=== PATIENT | female | born 1975 | race Two or more races ===

== ENCOUNTER 2025-07-15 13:00 | Outpatient (REF) | payer OTHER, SELFPAY ==
--- OUTSIDE RECORDS SUMMARY | 2025-07-15 15:00 | XMS_ITS | Encounter Summary ---
Author Organization [facility] Address [address] [place] [address] [address] [place] [address] Care Team Providers Care Client Support Coordinator Name Role Phone Alyssa Ellsworth MD Primary Care Provider Cierra Casey NP Primary Care Provider [phone] Reason for Visit * Reason Comments Med Change Request Encounter Details Date Type Department Care Team (Late st Contact Info) Description 04/08/2024 Refill [facility] [address] [place] [address] Lucien Cardenas MD [address] [place] [address] Type 2 diabetes mellitus without complication, without long-term current use of insulin ([facility]) Social History Tobacco Use Types Packs/Day Years Used Date Smoking Tobacco: Never Smokeless Tobacco: Never Alcohol Use Standard Drinks/Week Comments Not Currently 0 (1 standard drink = 0.6 oz pur e alcohol) Housing Stability Answer Date Recorded What is your housing situation today? I have charlotte madrigal 08/10/[address] you li ve. Do you have problems with any of the following? None of the above 08/10/2023 Food Insecurity Answer Date Recorded Within the past 12 months, y ou worried that your food would run out before you got money to buy more: Never True 08/10/2023 Within the past 12 months,th e food you bought just didn't last and you didn't have enough money to get more: Never True Transportation Answer Date Recorded In the past 12 months, has l ack of transportation kept you from medical appts, meetings, work or from getting things needed for daily living? No 08/10/2023 Utilities Answer Date Recorded In the past 12 months, has t he electric, gas, oil or water company threatened to shut off services in your home? No 08/10/2023 Comments Unknown Sex and Gender Information Value Date Recorded Sex Assigned at Female 08/09/2022 3:27 PM EDT Legal Sex Female 3:27 PM EDT Gender Identity Female 08/09/2022 3:27 PM EDT Sexual Orientation Straight 08/09/2022 3: 27 PM EDT documented as of this encounter Miscellaneous Notes * Telephone Encounter - Alyssa Ellsworth MD - 04/09/2024 12:18 PM EDT Approving, but needs appt for additional refills. * Telephone Encounter - RAYNA Small - 04/09/2024 11:12 AM EDT RX Change Request from: Dear provider pharmacy/Patient is requesting a change on RX: metFORMIN (Glucophage) 500 MG tablet 1.Rx sig: No 2.Rx quantity: Yes 3.Rx day supply: Yes 4. PA/Alternative No Pharmacy comment: REQUEST FOR 90 DAYS PRESCRIPTION. DX Code Needed. RAYNA Small 04/09/2024 documented in this encounter Plan of Treatment Not on file documented as of this encounter Visit Diagnoses Diagnosis Type 2 diabetes mellitus without complication, without long-term current use of insulin (HCC) documented in this encounter Care Teams Client Support Coordinator Relationship Specialty Start Date End Date Alyssa Ellsworth MD PCP - General Family Medicine 08/19/23 12/21/24 Cierra Lindsey NP [address] [place] [address] PCP - General Family Medicine 12/22/24 documented as of this encounter
--- OUTSIDE RECORDS SUMMARY | 2025-07-15 15:00 | XMS_ITS | Encounter Summary ---
Author Organization [facility] Address [address] [facility] [address] [place] [address] Care Team Providers Care Loin Trimmer Name Role Phone Alyssa Ellsworth MD Primary Care Provider Cierra Casey NP Primary Care Provider [phone] Reason for Visit * Reason Onset Date Comments Med Refill 03/11/2024 Encounter Details Date Type Department Care Team (Late st Contact Info) Description 03/11/2024 Refill [facility] [address] [place] [address] Jaspal Root MD [address] [place] [address] Type 2 diabetes mellitus without complication, without long-term current use of insulin ([facility]) Social History Tobacco Use Types Packs/Day Years [...] encounter Miscellaneous Notes * Telephone Encounter - Lucien Cardenas MD - 03/14/2024 9:43 PM EDT Approving, but needs appt for additional refills. * Telephone Encounter - Lola Logan - 03/12/2024 8:27 AM EDT PATIENT REQUEST RX Previous Appt: 06/13/23 Office Visit on 06/13/2023 Component Date Value Ref Range Status Hemoglobin A1c 06/13/2023 6.0 (H) <5.7 % of total Hgb Final Comment: For someone without known diabetes, a hemoglobin A1c value between 5.7% and 6.4% is consistent with prediabetes and should be confirmed with a follow-up test. For someone with known diabetes, a value <7% indicates that their diabetes is well controlled. A1c targets should be individualized based on duration of diabetes, age, comorbid conditions, and other considerations. This assay result is consistent with an increased risk of diabetes. Currently, no consensus exists regarding use of hemoglobin A1c for diagnosis of diabetes for children. Mean Plasma Glucose 06/13/2023 136 mg/dL (calc) Final Glucose 06/13/2023 93 65 - 99 mg/dL Final Comment: Fasting reference interval Urea Nitrogen (BUN) 06/13/2023 11 7 - 25 mg/dL Final Creatinine 06/13/2023 0.79 0.50 - 0.99 mg/dL Final eGFR 06/13/2023 92 > OR = 60 mL/min/1.73m2 Final BUN/Creatinine Ratio 06/13/2023 SEE NOTE: (calc) Final Comment: Not Reported: BUN and Creatinine are within reference range. Sodium 06/13/2023 138 135 - 146 mmol/L Final Potassium 06/13/2023 4.7 3.5 - 5.3 mmol/L Final Chloride 06/13/2023 104 98 - 110 mmol/L Final Carbon Dioxide 06/13/2023 26 20 - 32 mmol/L Final Calcium 06/13/2023 10.0 8.6 - 10.2 mg/dL Final Past Appointments Date Time Status Provider Department Type Appt Notes 09/12/2023 2:00 PM Can Alyssa Ellsworth MD [facility] Office Visit DM II 09/12/2023 1:50 PM Can Cory Angeles MD [facility] Office Visit DM II 06/17/2023 1:00 PM Comp MAMMOGRAPHY AN RAD MAMMO 06/13/2023 3:50 PM Comp Cory Angeles MD [facility] Physical CPE + f/u HTN 05/28/2023 11:00 AM Tod Diaz DPM [facility] POD Consult pod. reff No future appointments. documented in this encounter Plan of Treatment Not on file documented as of this encounter Visit Diagnoses Diagnosis Type 2 diabetes mellitus without complication, without long-term current use of insulin (HCC) documented in this encounter Care Teams Loin Trimmer Relationship Specialty Start Date End Date Alyssa Ellsworth MD PCP - General Family Medicine 08/19/23 12/21/24 Ceirra Lindsey NP [facility] [place] [address] PCP - General Family Medicine 12/22/24 documented as of this encounter
--- OUTSIDE RECORDS SUMMARY | 2025-07-15 15:00 | XMS_ITS | Clinical Summary ---
Author Organization [employer] Address [address] [facility] [address] [place] [address] Care Team Providers Care Payroll Auditor Name Role Phone Cierra Lindsey NP Primary Care Provider [phone] Allergies No known active allergies Medications lisinopril 10 MG tabletIndication s:Well-controlle d hypertension Take 1 tablet (10 mg) by mouth Once per day. 30 tablet 11 4 Active Drospirenone (Slynd) 4 MG tabletIndication s:Contraceptive Therapy,Norenthi ndrone intolerance Take 1 tablet by mouth Once per day. 84 tablet 4 4 025 Active rosuvastatin (Crestor) 40 MG tablet Take 1 tablet (40 mg) by mouth Once per day. 30 tablet 11 4 Active senna-docusate sodium (Senokot-S) 8.6-50 MG tabletIndication s:Constipation, unspecified constipation type Take 1 tablet by mouth Once per day. 30 tablet 4 025 Active ferrous sulfate (Fe Tabs) 325 (65 Fe) MG EC tablet Take 1 tablet (325 mg) by mouth every other day. Do not crush, chew, or split. 45 tablet 3 5 026 Active metFORMIN (Glucophage) 500 MG tabletIndication s:Type 2 diabetes mellitus without complication, without long-term current use of insulin (HCC) Take 1 tablet (500 mg) by mouth with breakfast AND 2 tablets (1,000 mg) at bedtime. 270 tablet 1 5 Active LORazepam (Ativan) 1 MG tabletIndication s:Counseling for control, intrauterine device Take 1 tablet (1 mg) by mouth 1 (one) time for 1 dose. 30 minutes before appointment 1 tablet 5 Active sulfamethoxazole -trimethoprim (Bactrim DS) 800-160 MG tabletIndication s:Urinary tract infection without hematuria, site unspecified Take 1 tablet by mouth 2 times daily for 5 days. 10 tablet 5 025 Active Problems Problem Noted Date Diagnosed Date Right lateral abdominal pain 2024 Assessment & Plan (2024 4:24 PM EDT): Advised Charlotte that this is very difficult to work up over the phone, as I cannot examine her belly or see where her pain is located. Advised in-office visit. Her liver US showed echogenicity and LFTs slightly elevated. This is not likely the cause of pain. She has no gallbladder disease on most recent imaging. Recommended trial of pepcid. Consider H pylori, PUD, inflammatory bowel, gas, constipation Vasovagal syncope 2024 Overview (2024): S/p vasovagal syncope with head strike. Evaluated in ED. Recommended brain rest, hydration. RTC if worsening sx. Hair loss 10/07/2024 Overview (10/07/2024): Noting 8 months of hair thinning Visit audio- unable to see hair/do hair pull test No anemia 09/22 Less likely to be medication side effect-hair loss not listed as major side effect for rosuvastatin, metformin, lisinopril Not currently taking drospirenone Labs ordered Highly echogenic liver on ultrasound 09/06/2024 Overview (10/07/2024): Patient with recent abdominal ultrasound consistent with hepatic steatosis Fib four 0.86- advanced fibrosis unlikely Fibroscan ordered- pt plans to think about whether wants to do it Adenomatous polyp of colon 09/06/2024 Overview (09/06/2024): Patient reports previous colonoscopy 3 years ago-was recommended to repeat in 3 years Colonoscopy ordered-patient to schedule Constipation 09/06/2024 Overview (09/06/2024): Patient endorsing bowel movement approximately every other day with constipation and some bright red blood on toilet paper after difficult bowel movement-no red flag symptoms Discussed increasing hydration and fiber Reasonable to trial stool softener which was sent to pharmacy Colonoscopy ordered as discussed Follow-up in 1 month Cramps of lower extremity 06/16/2023 Assessment & Plan (06/16/2023 10:30 PM EDT): Unclear etiology. Will continue to monitor this. I have asked her to try to exercise more during her weeks - suggested walking regularly Encounter for screening for malignant neoplasm o f breast 06/16/2023 Assessment & Plan (06/16/2023 10:27 PM EDT): Mammogram due - pt to schedule this today. Encounter for annual general medical examination without abnormal findings in adult 05/07/2023 Assessment & Plan (06/16/2023 10:27 PM EDT): Pt seen today for physical exam. Discussed dangers of tobacco, excessive alcohol, drug use, sun exposure and seatbelt use. Immunizations: plan to discuss immunization history during her next follow-up viist Healthy lifestyle recommendations discussed Exercise 30mins at least 3 times per week Increase fresh fruit and veggies in diet, increase fiber and lean protein. Recommend regular Eye and Dental care Labs today as below. Will contact with results. Type 2 diabetes mellitus wit hout complication, without long-term current use of insulin 02/02/2023 Overview (2024): Jun 2024 A1C 6.21 Nov 2024 A1c 7.1% Currently taking metformin 500mg twice daily, rosuvastatin 40mg every day Foot exam due Eye exam due Microalbumin 07/05/24 WNL Recheck A1c in 3 months Assessment & Plan (06/16/2023 10:26 PM EDT): Plan to continue current regimen. Check labs as listed below. Assessment & Plan (02/02/2023 11:03 AM EDT): Stable on current regimen. Plan to continue. A1C has been at goal. Toenail deformity 02/02/2023 Assessment & Plan (02/02/2023 11:03 AM EDT): Referred to podiatry given her toe complaint. Thoracic back pain 11/14/2021 Well-controlled hypertension 02/15/2021 Overview (10/07/2024): Current regimen lisinopril 10mg daily Patient denies elevated blood pressure at home Assessment & Plan (06/16/2023 10:24 PM EDT): BP well-controlled on current regimen. Plan to continue. Assessment & Plan (02/02/2023 11:02 AM EDT): BP is very close to goal today. I am encouraging her to start regularly exercising going forward. I anticipate her BP improving with the addition of regular exercise. Plan to continue lisinopril 30 mg daily. Unspecified ovarian cyst, left side 07/16/2019 Pain in unspecified knee 05/28/2019 Varicose veins 05/28/2019 Anovulation 06/19/2018 Oligomenorrhea 03/23/2018 Delayed menses 02/19/2018 Polycystic ovarian syndrome 02/19/2018 Headache 12/15/2017 Overview (05/15/2024): Patient endorsing headache which sounds consistent with tension type headache-no neurologic deficits on exam Patient also has shoulder and neck soreness- likely muscle spasm as no focal deficits on exam Discussed can trial low-dose muscle relaxant-trial Flexeril 5 mg as needed, also okay to continue Excedrin Migraine medication as needed for headache Patient also to try to do breathing exercises to stay calm as she says when she is calm the headache goes away Discussed appropriate use of medications, potential adverse effects, and expectations regarding treatment. 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 Questions answered. Patient understands and agrees with plan. Obesity 01/20/2017 Dyslipidemia 09/20/2016 Overview (10/07/2024): Moderate control, improving Currently on rosuvastatin 40 mg Assessment & Plan (06/16/2023 10:28 PM EDT): Check labs as listed below. Resolved Problems Problem Noted Date Diagnosed Date Resolved Date Vaginal discharge 12/18/2021 06/16/2023 Uncontrolled type 2 diabetes mellitus 11/15/2021 06/16/2023 Benign essential hypertension 08/26/2019 06/16/2023 Overview (10/31/2022): Stage I hypertension - declined medication - prefers to continue to work on lifestyle modifications Prediabetes 09/20/2016 06/16/2023 Encounters Date Type Department Care Team Description 07/12/2025 Results Follow-Up [address] [address] Anu Ojeda, CELESTE BI Mammogram Screening Bilateral 07/08/2025 Results Follow-Up [address] [address] Anu Ojeda, CELESTE POCT Urinalysis dipstick, Urine culture (clean catch) 07/04/2025 3:00 PM EDT Office Visit [address] [address] Anu Ojeda, CELESTE Pelvic pain (Primary Dx); Menorrhagia with regular cycle; Dysuria 07/03/2025 Travel 06/23/2025 11:30 AM EDT [facility] [address] [place] [address] Anu Ojeda, CELESTE Dysmenorrhea (Primary Dx); Screening mammogram for breast cancer; Counseling for control, intrauterine device 06/20/2025 Travel from Last 3 Months Immunizations Immunization Administration Dates Next Due INFLUENZA VACCINE QUADRIVALE NT RECOMBINANT PRESERVATIVE FREE RIV4 08/26/2019 Moderna Covid-19 Vaccine 12+ 02/27/2021,01/31/20 21 Moderna Covid-19 Vaccine 6+ Bivalent 10/27/2022 Td (adult), unspecified 08/26/2019 Tdap 08/26/2019 Family History Medical History Relation Name Comments Cancer Mother Marissa bolaños Relation Name Status Comments Mother Marissa bolaños Social History Tobacco Use Types Packs/Day Years Used Date Smoking Tobacco: Never Smokeless Tobacco: Never Tobacco Cessation:Counseling Given: Not Answered Alcohol Use Standard Drinks/Week Comments Never 0 (1 standard drink = 0.6 oz pur e alcohol) Alcohol Answer Date Recorded How often do you have a drink containing alcohol ? 0 12/20/2024 How many drinks containing a lcohol do you have on a typical day when you are drinking? 0 12/20/2024 How often do you have six or more drinks on one occasion? 0 12/20/2024 Depression Answer Date Recorded Patient Health Questionnaire-9 Score 0 12/20/2024 Patient Health Questionnaire-9 Score 0 12/20/2024 Last PHQ-9: Questionnaire Data 1 0 12/20/2024 Housing Stability Answer Date Recorded What is your housing situation today? I have charlotte madrigal 12/20/[address] you li ve. Do you have problems with any of the following? None of the above 12/20/2024 Food Insecurity Answer Date Recorded Within the past 12 months, y ou worried that your food would run out before you got money to buy more: Never True 12/20/2024 Within the past 12 months,th e food you bought just didn't last and you didn't have enough money to get more: Never True 07/2025 Transportation Answer Date Recorded In the past 12 months, has l ack of transportation kept you from medical appts, meetings, work or from getting things needed for daily living? No 12/20/2024 Utilities Answer Date Recorded In the past 12 months, has t he electric, gas, oil or water company threatened to shut off services in your home? No 12/20/2024 Depression Answer Date Recorded Patient Health Questionnaire-2 Score 0 12/20/2024 Internet Access Answer Date Recorded Internet Access Q1 Yes 12/20/2024 Internet Access Q2 Not on file 12/20/2024 Comments No Sex and Gender Information Value Date Recorded Sex Assigned at Female 08/09/2022 3:27 PM EDT Legal Sex Female 3:27 PM EDT Gender Identity Female 08/09/2022 3:27 PM EDT Sexual Orientation Straight 08/09/2022 3: 27 PM EDT Last Filed Vital Signs Vital Sign Reading Time Taken Comments Blood Pressure 126/85 07/04/2025 1:59 PM EDT Pulse 66 07/05/2024 11:34 AM EDT Temperature 36.4 C (97.6 F) 07/05/2024 11:34 AM EDT Respiratory Rate - - Oxygen Saturation 100% 07/05/2024 11:34 AM EDT Inhaled Oxygen Concentration - - Weight 85 kg (187 lb 4.8 oz) 07/04/2025 1:59 PM EDT Height 165.1 cm (5' 5 ) 12/20/2024 9:51 AM EDT Body Mass Index 31.17 12/20/2024 9:51 AM EDT Plan of Treatment Health Maintenance Due Date Last Done Comments CT Colonography 1973 FIT DNA/Cologuard 1973 FIT 1973 FOBT 1973 HIV Screening 1973 Sigmoidoscopy 1973 Eye Exam 12/24/1983 Family Planning (PISQ) 1988 Hepatitis C Screening 12/24/1991 Hepatitis B Vaccines (1 of 3 - 19+ 3-dose series) 1992 Pneumococcal Vaccine: 50+ Years (1 of 2 - PCV) 1992 Zoster Vaccines (1 of 2) 12/24/2023 COVID-19 Vaccine (4 - season) 2025 10/27/2022, 02/27/2021, 01/30/2021 Influenza Vaccine (#1) 2025 08/26/2019 Diabetes: Foot Exam 07/05/2025 07/05/2024, 07/05/2024, 07/05/2024, Additional history exists Diabetes: Urine Protein Screening 07/05/2025 07/05/2024, 03/26/2024, 12/06/2022 Lipid Panel 09/22/2025 09/22/2024, 06/14, 03/26/2024, Additional history exists Tobacco Screening 10/07/2025 10/07/2024 Diabetes: Hemoglobin A1C 12/08/2025 025, 03/10/2025, 12/08/2024, Additional history exists Disability Screening 12/13/2025 12/13/2024 Alcohol/Substance Use Screening 12/20/2025 12/20/2024 Depression Screening 12/20/2025 12/20/2024, 12/21/19 25 SDOH Screening 12/20/2025 12/20/2024 Mammogram 07/12/2027 07/12/2025, 06/13, 07/11/2021, Additional history exists Cervical Cancer Screening 07/05/2029 HPV/Cotest 07/05/2029 07/05/2024 Pap Smear 07/05/2029 07/05/2024, 06/14, 09/20/2016 DTaP/Tdap/Td Vaccines (2 - Td or Tdap) 08/26/2029 08/26/2019, 08/26/2019 Colonoscopy 07/18/2031 07/18/2021 Colorectal Cancer Screening 07/18/2031 RSV Patients and Patients Aged 60 years or older (1 - 1-dose 75+ series) 2048 HIB Vaccines Aged Out No longer eligi ble based on patient's age to complete this topic HPV Vaccines Aged Out No longer eligi ble based on patient's age to complete this topic Hepatitis A Vaccines Aged Out No long er eligible based on patient's age to complete this topic IPV Vaccines Aged Out No longer eligi ble based on patient's age to complete this topic Meningococcal B Vaccine Aged Out No l onger eligible based on patient's age to complete this topic Meningococcal Vaccine Aged Out No nahum adia eligible based on patient's age to complete this topic RSV under 20 months Aged Out No longe r eligible based on patient's age to complete this topic Rotavirus Vaccines Aged Out No longer eligible based on patient's age to complete this topic Procedures Procedure Name Priority Date/Time Associated Diagnosis Comments BI MAMMOGRAM SCREENING BILATERAL Routine 07/12/2025 11:19 AM EDT Screening mammogram for breast cancer CULTURE, URINE, ROUTINE Routine 07/05/2025 3:41 PM EDT Pelvic pain POCT URINALYSIS DIPSTICK Routine 07/04/2025 2:46 PM EDT Pelvic pain HEMOGLOBIN A1C WITH MPG Routine 06/07/2025 11:00 AM EDT Type 2 diabetes mellitus without complication, without long-term current use of insulin (CMS/HCC) LIPID PANEL, STANDARD Routine 09/22/2024 11:40 AM EST Highly echogenic liver on ultrasound Dyslipidemia ALBUMIN, RANDOM URINE W/CREATININE Routine 07/05/2024 12:51 PM EDT Type 2 diabetes mellitus without complication, without long-term current use of insulin (CMS/HCC) THINPREP IMAGING PAP AND HPV MRNA E6/E7 WITH REFLEX TO HPV 16,18/45 Routine 07/05/2024 12:00 AM EDT Encounter for annual routine gynecological examination Cervical cancer screening COLONOSCOPY Routine 07/18/2021 9:00 AM EDT from Last 3 Months or Most Recently Relevant to Health Maintenance Results * BI Mammogram Screening Bilateral (07/12/2025 11:19 AM EDT) Anatomical Region Laterality Modality Breast Bilateral Mammography 07/12/2025 11:1 9 AM EDT 07/04/2025 1:09 PM EDT Narrative 07/12/2025 11:24 AM EDT FINAL REPORT FINAL REPORTBILATERAL DIGITAL SCREENING MAMMOGRAM INTERPRETED WITH COMPUTER AIDED DETECTION. INDICATION: Screening. COMPARISON: Available. TECHNIQUE: Routine views were obtained. Computer-aided detection was utilized. FINDINGS: Tissue Density: B. There are scattered areas of fibroglandular density. There are scattered fibroglandular densities. There is no suspicious dominant mass, architectural distortion or suspicious grouped microcalcifications. IMPRESSION: No evidence of malignancy. BI-RADS 1 - NEGATIVE. POI: [place] [address] . Procedure Note Donotuseinterpreter, Image - 07/12/2025 FINAL REPORT FINAL REPORTBILATERAL DIGITAL SCREENING MAMMOGRAM INTERPRETED WITH COMPUTER AIDED DETECTION. INDICATION: Screening. COMPARISON: Available. TECHNIQUE: Routine views were obtained. Computer-aided detection was utilized. FINDINGS: Tissue Density: B. There are scattered areas of fibroglandular density. There are scattered fibroglandular densities. There is no suspicious dominant mass, architectural distortion or suspicious grouped microcalcifications. IMPRESSION: No evidence of malignancy. BI-RADS 1 - NEGATIVE. POI: [place] [address] . Anu Ojeda NP IMG BI PROCEDURES Final Resu lt * (ABNORMAL) Urine culture (clean catch) (07/05/2025 3:41 PM EDT) Culture, Urine, Routine SEE NOTE(A) [employer] Comment: CULTURE, URINE, ROUTINE Micro Number: [id number] Test Status: Final Specimen Source: Urine Specimen Quality: Adequate Result: Greater than 100,000 CFU/mL of Escherichia coli COMMENT: Additional non-predominating organism(s) isolated. These organisms, commonly found on external and internal genitalia, are considered colonizers. No further testing performed. E.coli INT KENTRELL AMOX/CLAVULANATE S 4 AMP/SULBACTAM S 4 CEFAZOLIN NR <=1 2 CEFEPIME S <=0.12 CEFTAZIDIME S <=0.5 CEFTRIAXONE S <=0.25 CIPROFLOXACIN S <=0.06 GENTAMICIN S <=1 IMIPENEM S <=0.25 LEVOFLOXACIN S <=0.12 MEROPENEM S <=0.25 NITROFURANTOIN S <=16 PIP/TAZOBACTAM S <=4 TRIMETHOPRIM/SULFA S <=20 S = Susceptible I = Intermediate R = Resistant NS = Not susceptible SDD = Susceptible Dose Dependent * = Not Tested NR = Not Reported NN = See Therapy Comments THERAPY COMMENTS Note 1: For infections other than uncomplicated UTI caused by E. coli, K. pneumoniae or P. mirabilis: Cefazolin is resistant if KENTRELL > or = 8 mcg/mL. (Distinguishing susceptible versus intermediate for isolates with KENTRELL < or = 4 mcg/mL requires additional testing.) Note 2: For uncomplicated UTI caused by E. coli, K. pneumoniae or P. mirabilis: Cefazolin is susceptible if KENTRELL <32 mcg/mL and predicts susceptible to the oral agents cefaclor, cefdinir, cefpodoxime, cefprozil, cefuroxime, cephalexin and loracarbef. Urine Urine specimen obtained by clean catch procedure / Unknown 07/05/2025 3:41 PM EDT 07/05/2025 3:41 PM EDT Anu Ojeda NP LAB MICROBIOLOGY - GENERAL O RDERABLES Final Result [facility] [address] [place] [address], [facility] [place] [address] [facility] [place] [facility] [address] [place] [phone] * (ABNORMAL) POCT Urinalysis dipstick (07/04/2025 2:46 PM EDT) Color, UA Yellow Clarity, UA Clear Glucose, UA Negative Bilirubin, UA Negative Ketones, UA Negative Spec Grav, UA 1.025 Blood, UA Positive(A) Negative, None Detected pH, UA 7.0 Protein, UA 2+ 125++ Urobilinogen, UA 2.0 Leukocytes, UA Negative Negative, Rare, Trace Nitrite, UA Negative Negative, None Detected Appearance, UA clear QC Media Lot # [id number] Lot# Expiration Date 123,125 Urine 07/04/2025 2:46 PM EDT Anu Ojeda NP POINT OF CARE TEST ENTER/ANDREA T ORDERABLES Final Result * (ABNORMAL) Hemoglobin A1c with Calculated Mean Plasma Glucose (06/07/2025 11:00 AM EDT) Hemoglobin A1c 6.4(H) <5.7 % [employer] Comment: For someone without known diabetes, a [...] of diabetes for children. Mean Plasma Glucose 151 mg/dL (calc) [facility] [place] [facility] 06/07/2025 11:0 0 AM EDT 06/07/2025 11:00 AM EDT Narrative [facility] - 06/08/2025 5:31 AM EDT FASTING:YES FASTING: YES us Cierra Lindsey NP LAB BLOOD ORDERABLES Final Result [facility] [address], [place] [address] [facility] [place] [facility] [address] [place] [address] * (ABNORMAL) Lipid Panel, Standard (09/22/2024 11:40 AM EST) [facility] Cholesterol, Total 157 <200 mg/dL [facility] [place] [facility] HDL Cholesterol 46(L) > OR = 50 mg/dL [facility] [place] [facility] Triglycerides 160(H) <150 mg/dL [facility] [place] [facility] LDL Cholesterol 85 mg/dL [facility] t [employer] [place] [facility] Comment: Reference range: <100 Desirable range <100 mg/dL for primary prevention; <70 mg/dL for patients with CHD or diabetic patients with > or = 2 CHD risk factors. LDL-C is now calculated using the Morales-Bryanna calculation, which is a validated novel method providing better accuracy than the Friedewald equation in the estimation of LDL-C. Morales SS et al. FATOUMATA. 2013;310(19): 8359-5368 (http://education.[employer] (MM)/faq/UGG300) Chol/HDLC Ratio 3.4 <5.0 (calc) [facility] [place] [facility] Non-HDL Cholesterol 111 <130 mg/dL [facility] [place] [facility] Comment: For patients with diabetes plus 1 major ASCVD risk factor, treating to a non-HDL-C goal of <100 mg/dL (LDL-C of <70 mg/dL) is considered a therapeutic option. Blood Venous blood specimen / Unknown 09/22/2024 11:40 AM EST 09/22/2024 11:41 AM EST Narrative [facility] - 09/23/2024 12:34 AM EST FASTING:YES FASTING: YES us Alyssa Ellsworth MD LAB BLOOD ORDERABLES Final Resul t Performing Organization Address [facility] Co de Phone Number [address], [facility] [place] [address] [facility] [place] [facility] [address] [place] [phone] * Albumin, Random Urine W/Creatinine (07/05/2024 12:51 PM EDT) Creatinine, Random Urine 67 20 - 275 mg/dL [facility] [place] [facility] Albumin, Urine 1.7 See Note: mg/dL [facility] [place] [facility] Comment: Reference Range: Reference Range Not established Albumin/Creatinin e Ratio, Random Urine 25 <30 mg/g creat [facility] [place] [facility] Comment: The ADA defines abnormalities in albumin excretion as follows: Albuminuria Category Result (mg/g creatinine) Normal to Mildly increased <30 Moderately increased 30-299 Severely increased > OR = 300 The ADA recommends that at least two of three specimens collected within a 3-6 month period be abnormal before considering a patient to be within a diagnostic category. Urine 07/05/2024 12:5 1 PM EDT 07/05/2024 12:51 PM EDT Narrative [facility] - 07/07/2024 6:09 PM EDT FASTING:NO FASTING: NO us Kyrie MALONE LAB URINE ORDERABLES Fi nal Result Performing Organization Address [facility]/ZIP Co de Phone Number [address], [facility] [place] [address] [facility] [place] [facility] [address] [place] [phone] * ThinPrep Imaging Pap and HPV mRNA E6/E7 with Reflex to HPV 16,18/45 (07/05/2024 12:00 AM EDT) Clinical Information: [employer] Comment:ABNORMAL IN HER 20S LMP: [employer] Comment:NONE GIVEN Prev. PAP: [facility] [place] [facility] Comment:NONE GIVEN Prev. BX: [employer] Comment:NO SOURCE: [facility] [place] [facility] Comment:None given Statement Of Adequacy: [facility] [place] [facility] Comment: Satisfactory for evaluation. Endocervical/transformation zone component present. Interpretation/Res ult: [employer] Comment: Cytology Results: Negative for intraepithelial lesion or malignancy. COMMENT: [employer] Comment: This Pap test has been evaluated with computer assisted technology. 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 It is not a diagnostic test and is subject to false negative and false positive results. It is most reliable when a satisfactory sample, regularly obtained, is submitted with relevant clinical findings and history, and when the Pap result is evaluated along with historic and current clinical information. HPV nRNA E6/E7 Not Detected Not Detected [employer] Comment: Methodology: Stamper Blocker-Mediated Amplification This assay detects E6/E7 viral messenger RNA (mRNA) from 14 high-risk HPV types (16,18,31,33,35,39,45,51,52,56,58,59,66,68). Cervical sources are required for HPV testing. If a vaginal source from a patient who has had a total hysterectomy with removal of cervix was submitted, please contact the testing laboratory for alternative testing options. For additional information, please refer to http://education.[facility]/faq/KXT896j1 (This link if provided for information/ educational purposes only.) 07/05/2024 07/06/2024 1:5 0 AM EDT Anu Ojeda NP LAB PATHOLOGY ORDERABLES Fin al Result [facility] [address] [facility], [place] [address] [facility] [place] [facility] [address] [place] [address] * COLONOSCOPY (07/18/2021 9:00 AM EDT) Anatomical Region Laterality Modality Endoscopy 07/18/2021 9:00 AM EDT Narrative 07/18/2021 9:00 AM EDT Interpretation Comment: abnormal-adenomatous and hyperplastic polyps Refer to the Notes tab for result details Procedure Note Provider, MD Florencia - 07/25/2023 Interpretation Comment: abnormal-adenomatous and hyperplastic polyps Refer to the Notes tab for result details us Cory Angeles MD ENDOSCOPY PROCEDURE ORDERABLES Final Result from Last 3 Months or Most Recently Relevant to Health Maintenance Insurance * Guarantor: Merissa Montana Account Type Relation to Patient Date of Phone Billing Address Personal/Family Self 1975 [address] [place] [address] [facility] [place] [employer] * Guarantor: Merissa Montana Account Type Relation to Patient Date of Phone Billing Address Personal/Family Self [place], [place] * Guarantor: Merissa Montana Account Type Relation to Patient Date of Phone Billing Address Personal/Family Self [place], [place] * Guarantor: Merissa Montana Account Type Relation to Patient Date of Phone Billing Address Personal/Family Self [place], [place] Care Teams Payroll Auditor Relationship Specialty Start Date End Date Cierra Lindsey NP [address] [place] [id number] PCP - General Family Medicine 12/22/24
--- OUTSIDE RECORDS SUMMARY | 2025-07-15 15:00 | XMS_ITS | Encounter Summary ---
Author Organization [employer] Address [address] [facility] 7t [place] [address] Care Team Providers Care Labor Relations Consultant Name Role Phone Cierra Lindsey NP Primary Care Provider [phone] Encounter Details Date Type Department Care Team (Late st Contact Info) Description 07/12/2025 Results Follow-Up [facility] [address] [place] [address] Anu Ojeda NP [address] [place] [address] BI Mammogram Screening Bilateral Social History Tobacco Use Types Packs/Day Years Used Date Smoking Tobacco: Never Smokeless Tobacco: Never Alcohol Use Standard Drinks/Week Comments Never 0 [...] PM EDT documented as of this encounter Plan of Treatment Not on file documented as of this encounter Visit Diagnoses Not on filedocumented in this encounter Additional Health Concerns Assessment Noted Time PHQ-9 Depression Total Score: 0 12/21/19 9:52 AM EDT documented as of this encounter Care Teams Labor Relations Consultant Relationship Specialty Start Date End Date Cierra Lindsey NP [facility] [place] [address] PCP - General Family Medicine 12/22/24 documented as of this encounter
--- OUTSIDE RECORDS SUMMARY | 2025-07-15 15:00 | XMS_ITS | Encounter Summary ---
Author Organization [employer] Address [address] [facility] 7t [place] [address] Care Team Providers Care Lead Technical Writer Name Role Phone Cierra Lindsey NP Primary Care Provider [phone] Encounter Details Date Type Department Care Team (Late st Contact Info) Description 07/08/2025 Results Follow-Up [facility] [address] [place] [address] Anu Ojeda NP [address] [place] [address] POCT Urinalysis dipstick, Urine culture (clean catch) Social History Tobacco Use Types Packs/Day Years [...] the past 12 months, has t he [employer], gas, oil or water [employer] threatened to shut off services in your [...] encounter Miscellaneous Notes * Telephone Encounter - Kristin Mackey RN - 07/14/2025 2:[address] call to patient, unable to reach patient, left and sent [facility] Airport Engineer ID: [id number]- William Per provider Please securities counselor her on taking them, she definitely needs to complete them and it couldpotentially get rid of her pain and cancel the need for any ultrasound imaging. It will not interact with her metformin, but she could have some GI side effects so should definitely eat before taking. Thank you * Telephone Encounter - Kristin Mackey RN - 07/14/2025 2:09 PM EDT ----- Message from Nurse Rita York sent at 07/13/2025 11:21 AM EDT ----- 10/15: pt reply to [facility]? ----- Message ----- From: Rita Patterson RN Sent: 07/13/2025 12:00 AM EDT To: [facility] Pt feeling better after antibiotics? ----- Message ----- From: Anu Ojeda NP Sent: 07/11/2025 8:40 AM EDT To: [facility] UTI treated appropriately. Please check in with pt after finishing antibiotics to see if pelvic pain has improved ----- Message ----- From: Marcelle Treadwell Sent: 07/04/2025 2:54 PM EDT To: Anu Ojeda NP * Telephone Encounter - Kristin Mackey RN - 07/08/2025 3:[address] call to patient about results Airport Engineer ID: [id number]- Yashira Result Communication Resulted Orders POCT Urinalysis dipstick Result Value Ref Range Color, UA Yellow Clarity, UA Clear Glucose, UA Negative Bilirubin, UA Negative Ketones, UA Negative Spec Grav, UA 1.025 Blood, UA Positive (A) Negative, None Detected pH, UA 7.0 Protein, UA 2+ 125++ Urobilinogen, UA 2.0 Leukocytes, UA Negative Negative, Rare, Trace Nitrite, UA Negative Negative, None Detected Appearance, UA clear QC Media Lot # [id number] Lot# Expiration Date 123,125 Urine culture (clean catch) Result Value Ref Range Culture, Urine, Routine SEE NOTE (A) Comment: CULTURE, URINE, ROUTINE Micro Number: [id number] Test Status: Preliminary Specimen Source: Urine Specimen Quality: Adequate Result: Greater than 100,000 CFU/mL of Escherichia coli 3:40 PM Results were successfully communicated with the patient and they acknowledged their understanding. * Telephone Encounter - Kristin Mackey RN - 07/08/2025 3:37 PM EDT ----- Message from Anu Ojeda sent at 07/08/2025 7:32 AM EDT ----- Pts urine pos for UTI. Please let pt know this may be what's been causing her pelvic pain recently.Please confirm allergies, pend 5d bid bactrim. Please also ask [facility] to run susceptibility testing. Thanks so much ----- Message ----- From: Marcelle Treadwell Sent: 07/04/2025 2:54 PM EDT To: Anu Ojeda NP documented in this encounter Plan of Treatment Not on file documented as of this encounter Visit Diagnoses Diagnosis Urinary tract infection without hematuria, site unspecified- Primary documented in this encounter Additional Health Concerns Assessment Noted Time PHQ-9 Depression Total Score: 0 12/21/19 9:52 AM EDT documented as of this encounter Care Teams Lead Technical Writer Relationship Specialty Start Date End Date Cierra Lindsey NP [facility] [place] [address] PCP - General Family Medicine 12/22/24 documented as of this encounter
--- OUTSIDE RECORDS SUMMARY | 2025-07-15 15:00 | XMS_ITS | Encounter Summary ---
Author Organization [facility] Address [address] [place] [address] 7 [place] [address] Care Team Providers Care Airframe And Power Plant Mechanic Name Role Phone Cory Angeles MD Primary Care Provider [phone] Alyssa Ellsworth MD Primary Care Provider Unavail Cierra Davis NP Primary Care Provider [phone] Reason for Visit * Reason Comments Med Change Request Encounter Details Date Type Department Care Team (Late st Contact Info) Description 10/18/2022 Refill [facility] [address] [place] [address] Cory Angeles MD [address] [place] [id number] Type 2 diabetes mellitus without complication, without long-term current use of insulin ([facility]/HCC) Social History Tobacco Use Types Packs/Day Years Used Date Smoking Tobacco: Never Assessed Comments Unknown Sex and Gender Information Value [...] (HCC) documented in this encounter Care Teams Airframe And Power Plant Mechanic Relationship Specialty Start Date End Date Cory Angeles MD PCP - General Internal Medicine 11/14/21 08/18/23 Alyssa Ellsworth MD PCP - General Family Medicine 08/19/23 12/21/24 Cierra Lindsey NP [address] [place] [id number] PCP - General Family Medicine 12/22/24 documented as of this encounter
--- OUTSIDE RECORDS SUMMARY | 2025-07-15 15:00 | XMS_ITS | Encounter Summary ---
Author Organization [employer] Address [address] [facility] 7t [place] [address] Care Team Providers Care Tangible Personal Property Appraiser Name Role Phone Alyssa Ellsworth MD Primary Care Provider Unavail Cierra Davis NP Primary Care Provider [phone] Encounter Details Date Type Department Care Team (Late st Contact Info) Description 12/09/2024 Orders Only [facility] [address] [place] [address] Alyssa Ellsworth MD Iron deficiency (Primary Dx) Social History Tobacco Use Types Packs/Day Years Used Date Smoking Tobacco: Never Smokeless Tobacco: Never Alcohol Use Standard Drinks/Week Comments Never 0 (1 standard drink = 0.6 oz pur e alcohol) Depression Answer Date Recorded Patient Health Questionnaire-9 Score 0 12/13/2024 Patient Health Questionnaire-9 Score 0 12/13/2024 Last PHQ-9: Questionnaire Data 1 0 12/13/2024 Housing Stability Answer Date Recorded What is [...] off services in your home? No 08/10/2023 Depression Answer Date Recorded Patient Health Questionnaire-2 Score 0 12/13/2024 Comments No Sex and Gender Information Value Date Recorded Sex Assigned at Female 08/09/2022 3:27 PM EDT Legal Sex Female 3:27 PM EDT Gender Identity Female 08/09/2022 3:27 PM EDT Sexual Orientation Straight 08/09/2022 3: 27 PM EDT documented as of this encounter Plan of Treatment Not on file documented as of this encounter Visit Diagnoses Diagnosis Iron deficiency- Primary Disorders of iron metabolism documented in this encounter Care Teams Tangible Personal Property Appraiser Relationship Specialty Start Date End Date Alyssa Ellsworth MD PCP - General Family Medicine 08/19/23 12/21/24 Cierra Lindsey NP [address] [place] [address] PCP - General Family Medicine 12/22/24 documented as of this encounter
[2025-07-15 19:05] LABS: Appearance Urine Clear; Glucose Urine UA Negative (Negative); PH 6.0 (5.0-9.0); Specific Gravity - Urine 1.010 (1.005-1.025); UMIC TRIGGER UA YES
== END 2025-07-15 13:01 | disposition home or self-care (01) ==
LOC: HO.WFDLDS 13:00
PROVIDERS: PCP Internal Medicine; Visit Provider Internal Medicine
DX: E28.2 Polycystic ovarian syndrome (principal); E11.9 Type 2 diabetes mellitus without complications; D64.9 Anemia, unspecified; E78.5 Hyperlipidemia, unspecified; Z79.84 Long term (current) use of oral hypoglycemic drugs
CPT/HCPCS: 81001; 81003; 87086; 96127

== ENCOUNTER 2025-07-15 13:00 | Outpatient (AMB) | payer OTHER, SELFPAY ==
--- NOTE | 2025-07-15 13:19 | A.OFFPC_ITS ---
Vital Signs 07/15/25 13:30 Height 5 ft 2.99 in Weight 186 lb BMI 33.0 BP 108/72 Blood Pressure Location Rt brachial Position Sitting Respiration 14 Pulse 95 Pulse Source Pulse Oximeter Temp 99.1 F Temp Source Oral Pulse Oximetry (%) 100 Oxygen Delivery Method Room Air Intake Visit Reasons: CPE? Intake Note: New patient visit Group Work Program Aide Required: Yes Group Work Program Aide Language: Equipment Installer Name: [id number] Allergies No Known Allergies Allergy (Verified 07/15/25 13:19) Tobacco use date assessed: 07/15/25 Dental Screening Dental Screen Date: 07/15/25 Did you have a dental visit in the last 12 months?: No Did you have a dental problem in the last 6 months where you did not have access to dental care?: No Was dental information given to patient?: Patient declined HPI HPI Comments History of Present Illness Details The patient is a [place] speaking 49 year old female with a past medical history of diabetes, hypertension, hyperlipidemia, PCOS, presenting [facility]. [facility] from [facility] DM: on metformin 500/1000mg daily. Last appointment was in December. Saws A1C at the time 6.4%. Does not have local eye doctor. CV: Crestor 40mg daily. BP was too low to tolerate lisinopril-was previously on. Denies chest pain, dizziness, no LE edema. She notes burning pain in the feet at night, ok during the day. Tells me she has had vascular studies in the past which were normal Neuro: Reports history of migraines. Previously seeing neurology. 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 Needs local. Recent u/s with likely hemorrhagic cyst-needs follow up 6-12 weeks. Colonoscopy: Has not had prior. Declines. Would like to do cologuard first Mammo 06/2025 at [facility] -normal ROS CONSTITUTIONAL: Denies weight loss, fever and chills. HEENT: Denies changes in vision and hearing. RESPIRATORY: Denies SOB and cough. CV: Denies palpitations and CP GI: Denies abdominal pain, nausea, vomiting and diarrhea. : Denies dysuria and urinary frequency. MSK: Denies new myalgia and joint pain. SKIN: Denies rash and pruritus. NEUROLOGICAL: Denies headache PSYCHIATRIC: Denies recent changes in mood. PHYSICAL EXAM: GENERAL: Alert and oriented x 3. NAD EYES: EOMI. Anicteric. HENT: Moist mucous membranes. No scleral icterus. No cervical lymphadenopathy. LUNGS: Clear to auscultation bilaterally. CARDIOVASCULAR: Regular rate and rhythm. No murmur. No JVD. ABDOMEN: Soft, non-tender +bs EXTREMITIES: No edema. Non-tender. SKIN: No rashes or lesions. Warm. NEUROLOGIC: No focal neurological deficits. CN II-XII grossly intact PSYCHIATRIC: Cooperative. Appropriate mood and affect [facility] Family History Mother HTN (hypertension) Diabetes Cancer Maternal Grandmother HTN (hypertension) Maternal Grandfather Cancer Diabetes Social History Housing: House (house with apartments) Alcohol intake: current Patient Tobacco Use Status: Never used Tobacco e-Cigarette/Vaping Use: Never Used Second Hand Smoke Exposure: No Use of substances other than those prescribed or required for medical reasons: No service: No Current occupational status: unemployed Cognitive needs: No Hearing needs: No Vision needs: Yes (glasses) Questionnaire PHQ-9 Over the last 2 weeks, how often have you been bothered by any of the following problems? 1. Little interest or pleasure in doing things: not at all 2. Feeling down, depressed, or hopeless: not at all 3. Trouble falling or staying asleep, or sleeping too much: not at all 4. Feeling tired or having little energy: not at all 5. Poor appetite or overeating: not at all 6. Feeling bad about yourself - or that you are a failure or have let yourself or your family down: not at all 7. Trouble concentrating on things, such as reading the newspaper or watching television: not at all 8. Moving or speaking so slowly that other people could have noticed. Or the opposite - being so fidgety or restless that you have been moving around a lot more than usual: not at all 9. Thoughts that you would be better off or of hurting yourself in some way: not at all Total score: 0 Depression Screening Interpretation: Negative Depression Screening Done: Yes 80702 - PHQ-9 Billing: Yes Source: Developed by Drs. Lasha Matthews, Carlo Hobosn and colleagues, with an educational jose from [employer]. Thrive Questionnaire Date Thrive assessed: 07/08/25 I am a: Patient What is your living situation today?: I have a steady place to live Within the past 12 months, did the food you bought not last and you didn't have the money to get more?: Never true Within the past 12 months, did you worry whether your food would run out before you got money to buy more?: Never true Do you have trouble paying for medicines?: No Do you have trouble getting transportation to medical appointments?: No Do you have trouble paying your heating and electricity bill?: No Do you have trouble taking care of your child, family member or friend?: No Do you have trouble with day-to-day activities such as bathing, preparing meals, shopping, managing finances, etc.?: No Are you currently unemployed and looking for a job?: Yes Are you interested in more education?: Yes Please select the resources that you would like help with: None Currently or been in a relationship where the following occur: I choose not to answer THRIVE Score: 0 AUDIT C Alcohol Use Questionnaire (AUDIT-C) 1. How often do you have a drink containing alcohol?: 2-4 times a month 2. How many drinks containing alcohol do you have on a typical day when you are drinking?: 1 or 2 3. How often do you have six or more drinks on one occasion?: Never Total Score: 2 IVA-7 AMB Questionnaire IVA-7 Feeling nervous, anxious, or on edge: 0 = Not at all Not being able to stop or control worryin = Not at all Worrying too much about different things: 0 = Not at all Trouble relaxin = Not at all Being so restless that it is hard to sit still: 0 = Not at all Becoming easily annoyed or irritable: 0 = Not at all Feeling afraid as if something awful might happen: 0 = Not at all Total IVA-7 score (0-4 normal; 5-9 mild; 10-14 moderate; 15-21 severe): 0 Source: Developed by Drs. Lasha Matthews, Carlo Hobson and colleagues, with an educational jose from [employer]. Physical exam (Primary Care) Vital Signs: Last Vital Signs Temp 99.1 F 07/15/25 13:30 Pulse 95 07/15/25 13:30 Resp 14 07/15/25 13:30 BP 108/72 07/15/25 13:30 Pulse Ox 100 07/15/25 13:30 Oxygen Delivery Method Room Air 07/15/25 13:30 BMI result Body Mass Index 33.0 Tobacco/Smoking Status: Tobacco use Status Tobacco use date assessed 07/15/25 07/15/25 13:41 Patient Tobacco Use Status Never used Tobacco 07/15/25 13:41 e-Cigarette/Vaping Use Never Used 07/15/25 13:41 PHQ-9: PHQ-9 Score PHQ-9: Total score 0 07/17/25 13:07 Depression Screening Interpretation: Negative Thrive Assessment: Date of Thrive Assessment Date Thrive assessed 07/08/25 07/15/25 13:20 Currently or been in a relationship where the following occur: I choose not to answer Coding Level of Care Code New Pt Level 4 (38306) Complex EM visit Add On G2211 Diagnoses Type 2 diabetes mellitus without complication, without long-term current use of insulin E11.9 Diabetes mellitus complication status: without complication Diabetes mellitus nursing home insulin use: without speech writer use Diabetes mellitus type: type 2 PCOS (polycystic ovarian syndrome) E28.2 Anemia, unspecified type D64.9 Anemia type: unspecified type Hyperlipidemia, unspecified hyperlipidemia type E78.5 Hyperlipidemia type: unspecified Cyst of ovary, right N83.201 Additional Codes PHQ-9 - 99282 - PHQ-9 Billing: Yes ([id number]) Assessment & Plan Assessment & Plan (1) Diabetes: Code(s): E11.9 - Type 2 diabetes mellitus without complications Category: Medical Qualifiers: Diabetes mellitus complication status: without complication Diabetes mellitus nursing home insulin use: without nursing home use Diabetes mellitus type: type 2 Qualified Code(s): E11.9 - Type 2 diabetes mellitus without complications (2) PCOS (polycystic ovarian syndrome): Code(s): E28.2 - Polycystic ovarian syndrome Category: Medical (3) Anemia: Code(s): D64.9 - Anemia, unspecified Category: Medical Qualifiers: Anemia type: unspecified type Qualified Code(s): D64.9 - Anemia, unspecified (4) Hyperlipidemia: Code(s): E78.5 - Hyperlipidemia, unspecified Category: Medical Qualifiers: Hyperlipidemia type: unspecified Qualified Code(s): E78.5 - Hyperlipidemia, unspecified (5) Cyst of ovary, right: Code(s): N83.201 - Unspecified ovarian cyst, right side Category: Medical Plan 49 year old female presenting to [facility] care Past medical, surgical, social reviewed Diabetes-well controlled per patient. She will repeat labs in Sep. Neuropathy- trial of gabapentin She recently had ua that looked negative but was given bactrim. Her dysuria resolved and she hasnt started the medication. Repeat urine Referral edm operator for cyst, pelvic pain, pcos routine care Cologuard ordered Orders: Orders Complete Blood Count Auto Diff 07/15/25 D64.9 - Anemia, unspecified, E11.9 - Type 2 diabetes mellitus without complications, E78.5 - Hyperlipidemia, unspecified Lipid Panel 07/15/25 D64.9 - Anemia, unspecified, E11.9 - Type 2 diabetes mellitus without complications, E78.5 - Hyperlipidemia, unspecified Hemoglobin A1c 07/15/25 D64.9 - Anemia, unspecified, E11.9 - Type 2 diabetes mellitus without complications, E78.5 - Hyperlipidemia, unspecified Urine Culture 07/15/25 E28.2 - Polycystic ovarian syndrome, N83.201 - Unspecified ovarian cyst, right side Comprehensive Met. Panel 07/15/25 D64.9 - Anemia, unspecified, E11.9 - Type 2 diabetes mellitus without complications, E78.5 - Hyperlipidemia, unspecified TSH reflex Free T4 07/15/25 D64.9 - Anemia, unspecified, E11.9 - Type 2 diabetes mellitus without complications, E78.5 - Hyperlipidemia, unspecified UA and rflx microscopic 07/15/25 E28.2 - Polycystic ovarian syndrome, N83.201 - Unspecified ovarian cyst, right side Referrals [facility] [employer] Referral E28.2 - Polycystic ovarian syndrome, R10.20 - Pelvic and per ineal pain unspecified side Cologuard Test Z12.11 - Encounter for screening for malignant neoplasm of colon, Z12.12 - Encounter for screening for malignant neoplasm of rectum Medications: New sumatriptan succinate (Imitrex) take 1 tab at onset of headache; if no relief may repeat 1 tab after at least 2 hrs; max = 4 tabs/24 hr PO 20 tabs 3RF gabapentin 300 mg PO BEDTIME PRN 90 caps 3RF foot pain burning
[2025-07-15 13:30] VITALS: BP 108/72; PULSE 95; RESP 14; TEMP 37.3; O2SAT 100; BMI 33.0
== END 2025-07-15 16:42 | disposition home or self-care (01) ==
LOC: HO.HMCFM 13:01
PROVIDERS: PCP Internal Medicine; Visit Provider Internal Medicine
DX: E11.69 Type 2 diabetes mellitus with other specified complication (principal); E28.2 Polycystic ovarian syndrome; D64.9 Anemia, unspecified; E78.5 Hyperlipidemia, unspecified

== ENCOUNTER 2025-08-24 14:42 | Outpatient (AMB) | payer OTHER, SELFPAY ==
--- OUTSIDE RECORDS SUMMARY | 2025-03-21 04:30 | XMS_ITS | Continuity of Care Document ---
Author Organization [facility] Address [address] [place] [address] Phone Care Team Providers Care Athletics Director Name Role Phone Laci ANTUNEZ, CHRISTINE, EMERY, Lasha Unavailable U navailable Procedures Procedure Date Offic Cons New/estab Mod 40 Mi- CT & [place] Duplex Scan-extrem Veins; Comp- CT & [place] Advance Directives Directive Yes / No Effective Date File Name No Information Encounters Encounter Description Practice Location Reason(s) For Visit Diagnoses Date Provider Providers Copied on Encounter Offic Cons New/estab Mod 40 Mi- [place] & [place] [facility], [address] [place] [address] [address], [place], [id number], tel:[phone] CVR - [facility] Varicose veins of right lower extremity with inflammationVar icose veins of left lower extremity with inflammationPai n in right lower legPain in left lower legType 2 diabetes mellitus without complicationsEs sential (primary) hypertensionLym phedema, not elsewhere classifiedDisor lizzy of pigmentation, unspecifiedPain in right legPain in left legHereditary lymphedemaCramp and spasmLocalized edema 5 Laci ANTUNEZ, CHRISTINE, EMERY Colby. [address], [address], [place], [place], [id number] , . tel:[phone] Referring Provider: Cierra Lindsey NP, [facility] [place], [address]. tel:[phone] [facility], [address], [place], [id number], [place] tel:[phone] R [facility] Varicose veins of bilateral lower extremities with pain Laci ANTUNEZ, RVT, RPBRAYAN Colby. [address], [address], [place], [id number] , [place]. tel:[phone] Referring Provider: Lasha Aguero MD, BYRONT, RPBRAYAN, [address], [place], [address] . tel:[phone] Family History Family Member Type Diagnosis Age At Onset No Information Payers Payer name Insurance type Covered constitution party ID Authorizbenjie eufemiaramonita(s) [facility] CI [id number] Social History Type Description Quantity Date Captured Comments Alcohol Use Details Unknown Caffeine Use Details Unknown Tobacco Use Status Current non-smoker Smoking Status Never Smoker Non-Smoking Tobacco Use Details : No Details Available : No Details Available Sex Female Vital Signs Date / Time: Height Weight BMI Pulse Rate Blood Pressure Temperature Respiratory Rate Body Surface Area Head Circumference Head Circ. Percentile Wt./Binh. Percentile BMI percentile Pulse Ox Inhaled Ox 86.180 kg (190.00 lbs) 31.6 9 kg/m eter (2) 126/82 mm[Hg] Chief Complaint And Reason For Visit No Information Reason For Referral Reason For Referral No Information Plan Of Treatment Date Type Action Status Goal Diet education completed Referral Ordered: Weight management: Referral to physician timeframe: 3 Months (related to Body mass index (BMI) 31.0-31.9, adult) ordered Appointment Merissa Alvarenga (1 Year ) BOOKED Appointment Merissa Alvarenga BRIGHT OKED History Of Present Illness Encounter Date Complaint History Of Prese nt Illness No Information Functional Status Date Functional Assessmen t No Information Instructions Date Instruction Additional Infor mation Compression stocking usage as conservative measure Related to Varicose veins of right lower extremity with inflammation Patient education booklet given Related to Varicose veins of right lower extremity with inflammation Lifestyle education Related to B chaya mass index (BMI) 31.0-31.9, adult Giving Encouragement to exercise Related to Body mass index (BMI) 31.0-31.9, adult Diet education Related to Body mass index (BMI) 31.0-31.9, adult Assessments Type Assessment Date No Information Patient Care Teams Name Effective Dates (start - stop) Status Members No Information
[2025-08-24 15:10] VITALS: BP 134/82; BMI 33.3
--- NOTE | 2025-08-24 15:10 | A.OFFVIS_ITS ---
Vital Signs 08/24/25 15:10 Height 5 ft 2 in Weight 182 lb 4 oz BMI 33.3 BP 134/82 Blood Pressure Location Lt brachial Position Sitting Intake Visit Reasons: pelvic pain/pcos Respiratory Assistant Required: Yes Respiratory Assistant Language: Debate Director Name: Lalit [id number] Information Interpreted: non-clinical & clinical Allergies No Known Allergies Allergy (Verified 08/24/25 15:19) Medication List - Last Reconciled 08/24/25 by Jackelyn Rea LPN gabapentin 300 mg PO BEDTIME PRN metformin mg PO rosuvastatin 40 mg PO DAILY sumatriptan succinate (Imitrex) take 1 tab at onset of headache; if no relief may repeat 1 tab after at least 2 hrs; max = 4 tabs/24 hr PO Is last menstrual period known: Yes Last menstrual period: 08/21/25 Post menopausal: No Patient : No HPI Comments Details: Patient is here today for new patient consult due to pelvic pain radiating to left side x 3 months. History of PCOS. Pain with urination, after emptying, improves. She reports being seen by her plant pathologist in the [place] area in June and was told everything was normal, No records available. Pelvic ultrasound 07/10/2025 at [facility] ED-cystic changes within the endometrium are present in the lower uterine segment, 3 cm hemorrhagic cyst. labs: 12.1/36.0, limited notes. HMB since age 48. Cycles monthly, HMB x4d out of 5-7d. No lightheadedness or di zziness. Taking one iron tablet a day. Abnormal pap 18yrs. ago, repeat was negative. History of ovarian surgery 20 yrs. ago. for ovarian bilateral cysts. [facility] Medical History Anemia Diabetes Pelvic pain Family History Mother HTN (hypertension) Diabetes Cancer Maternal Grandmother HTN (hypertension) Maternal Grandfather Cancer Diabetes Social History Housing: House (house with apartments) Alcohol intake: current Patient Tobacco Use Status: Never used Tobacco e-Cigarette/Vaping Use: Never Used Second Hand Smoke Exposure: No service: No Current occupational status: unemployed Cognitive needs: No Hearing needs: No Vision needs: Yes (glasses) Female Reproductive History Menstrual Date of last menstrual period: 08/21/25 control method: none Total pregnancies: 0 Date of last pap smear: 06/22/24 History of abnormal pap smear: No History of STI: Yes (HPV hx) Review of Systems Const All systems reviewed & are unremarkable except as noted in HPI and below Reports as per HPI Eyes Reports no additional complaints ENT Reports no additional complaints Card Reports no additional complaints Resp Reports no additional complaints GI Reports as per HPI and Reports no additional complaints Reports as per HPI Musc Reports no additional complaints Skin/Breast Reports as per HPI Neuro Reports no additional complaints Psych Reports no additional complaints Endo Reports no additional complaints Constantino/Lymph Reports no additional complaints Aller/Immun Reports no additional complaints Physical Exam Vital Signs: Last Vital Signs BP 134/82 08/24/25 15:10 BMI result Body Mass Index 33.3 Const General: cooperative, healthy appearing, no acute distress, well developed and alert Orientation/consciousness: patient oriented x3 HEENT Head: Yes normal to inspection Eyes General: appearance normal, both eyes and all related structures Neck Neck: Yes normal visual inspection Thyroid: Thyroid normal Chest Chest palpation & inspection: normal inspection of the chest and other (no puckering, dimpling, peau de orange, retraction, discharge, masses) Breast/axilla inspection: normal inspection of the breasts Breast/axilla palpation: normal palpation of the breasts Resp Effort & Inspection: normal respiratory effort GI Inspection: Yes normal to inspection Palpation (GI): Soft to palpation Rectal Exam - Female: deferred General: Yes bladder normal to palpation External Female Exam: normal external appearance and normal appearance of the urethra Speculum Exam - Vagina: normal appearance of the vagina, normal palpation and normal vaginal discharge Speculum Exam - Cervix: normal appearance of the cervix and normal palpation Bimanual exam- vagina & uterus: normal bimanual exam, normal palpation, uterine size normal, bladder normal to palpation, normal palpation and non-tender Bimanual Exam- Adnexa, other: no masses Skin General skin exam: no rashes or lesions noted Rashes: no rashes Neuro General: patient oriented x3 Cognition (Neuro): normal cognition Extrem General: Yes normal to inspection Psych Attitude: cooperative Thought process: Normal thought process present Assessment & Plan Assessment & Plan (1) Abnormal uterine bleeding (AUB): Code(s): N93.9 - Abnormal uterine and vaginal bleeding, unspecified Category: Medical Plan: Discussed: Previous external Ultrasound findings-suspected endometrial polyps. Repeat ultrasound for ovarian cyst, plan hysteroscopy consult appointment 09/12/[address] Pandya. The patient expressed understanding and agreement with the plan of care. All of her questions and concerns were addressed to the best of my ability. The patient expressed understanding and agreement with the plan of care. All of her questions and concerns were addressed to the best of my ability. (2) Cyst of ovary, right: Code(s): N83.201 - Unspecified ovarian cyst, right side Category: Medical Plan Discuss-ultrasound finding of right ovarian 3 cm cyst possible hemorrhagic cyst, plan repeat ultrasound and follow up pending results in office. The patient expressed understanding and agreement with the plan of care. All of her questions and concerns were addressed to the best of my ability. This note is constructed using voice recognition software. While every effort has been made to ensure accuracy, apron trimmer errors may have been included. Orders: Orders US pelvic and transvaginal 10/14/25 N83.201 - Unspecified ovarian cyst, right side Complete Blood Count no Diff 08/24/25 N93.9 - Abnormal uterine and vaginal bleeding, unspecified TSH reflex Free T4 08/24/25 N93.9 - Abnormal uterine and vaginal bleeding, unspecified Pap Smear 08/24/25 R10.2 - Pelvic and perineal pain CT NG by PCR Vag/Cerv 08/25/25 Z11.3 - Encounter for screening for infections with a predominantly sexual mode of transmission HPV High risk 08/24/25 Z11.51 - Encounter for screening for human papillomavirus (HPV) Bacterial Vaginosis Panel 08/25/25 Z11.3 - Encounter for screening for infections with a predominantly sexual mode of transmission Coding Level of Care Code New Pt Prev Care 40-64y(65078) Diagnoses Abnormal uterine bleeding (AUB) N93.9 Cyst of ovary, right N83.201
--- OUTSIDE RECORDS SUMMARY | 2025-08-24 18:11 | XMS_ITS | Encounter Summary ---
Author Organization [facility] Address [address] [place] [address] 7 [place] [address] Care Team Providers Care Tailings Worker Name Role Phone Cory Angeles MD Primary Care Provider [phone] Alyssa Ellsworth MD Primary Care Provider Unavail Cierra Davis NP Primary Care Provider Reason for Visit * Reason Comments Med Change Request Encounter Details Date Type Department Care Team (Late st Contact Info) Description 10/18/2022 Refill [facility] [address] [place] [address] Cory Angeles MD [address] [place] [phone] Type 2 diabetes mellitus without complication, without long-term current use of insulin ([facility]/HCC) Social History Tobacco Use Types Packs/Day Years [...] (HCC) documented in this encounter Care Teams Tailings Worker Relationship Specialty Start Date End Date Cory Angeles MD PCP - General Internal Medicine 11/14/21 08/18/23 Alyssa Ellsworth MD PCP - General Family Medicine 08/19/23 12/21/24 Cierra Lindsey NP [address] [place] [id number] PCP - General Family Medicine 12/22/24 documented as of this encounter
--- OUTSIDE RECORDS SUMMARY | 2025-08-24 18:11 | XMS_ITS | Clinical Summary ---
Author Organization [employer] Address 75 [facility] 7t [place] [address] Care Team Providers Care Environmental Monitoring Specialist Name Role Phone Cierra Lindsey NP Primary Care Provider [phone] Allergies No known active allergies Medications Drospirenone (Slynd) 4 MG tabletIndicatio ns:Contraceptiv e Therapy,Norenth indrone intolerance Take 1 tablet by mouth Once per day. 84 tablet 4 07/05/20 24 025 Active senna-docusate sodium (Senokot-S) 8.6-50 MG tabletIndicatio ns:Constipation , unspecified constipation type Take 1 tablet by mouth Once per day. 30 tablet 09/06/20 24 025 Active ferrous sulfate (Fe Tabs) 325 (65 Fe) MG EC tablet Take 1 tablet (325 mg) by mouth every other day. Do not crush, chew, or split. 45 tablet 3 12/09/19 25 026 Active metFORMIN (Glucophage) 500 MG tabletIndicatio ns:Type 2 diabetes mellitus without complication, without long-term current use of insulin (HCC) Take 1 tablet (500 mg) by mouth with breakfast AND 2 tablets (1,000 mg) at bedtime. 270 tablet 1 03/11/20 25 Active LORazepam (Ativan) 1 MG tabletIndicatio ns:Counseling for control, intrauterine device Take 1 tablet (1 mg) by mouth 1 (one) time for 1 dose. 30 minutes before appointment 1 tablet 06/23/20 25 Active rosuvastatin (Crestor) 40 MG tablet TAKE 1 TABLET BY MOUTH ONCE PER DAY. 90 tablet 3 07/18/20 25 Active tranexamic acid (Lysteda) 650 MG tablet tabletIndicatio ns:Menorrhagia with regular cycle Take 2 tablets (1,300 mg) by mouth 3 times daily. Rodger de 5 sarmiento, cuando esta sangrando 30 tablet 3 07/27/20 25 Active lisinopril 10 MG tabletIndicatio ns:Well-control led hypertension TAKE 1 TABLET BY MOUTH EVERY DAY 90 tablet 3 08/11/20 25 Active lisinopril 10 MG tabletIndicatio ns:Well-control led hypertension Take 1 tablet (10 mg) by mouth Once per day. 30 tablet 11 07/05/20 24 025 Discontinued Active Problems Problem Noted Date Diagnosed Date Right lateral abdominal pain 2024 Assessment & Plan (2024 4:24 PM EDT): Advised Tuttle that this is very difficult to work [...] clinic vs ER visit vs call to community integration specialist. Questions answered. Patient understands and agrees with [...] Encounters Date Type Department Care Team Description 08/11/2025 Refill [facility] INTERNAL MED [address] [place] [address] Kyrie Messina PA Well-controlled hypertension 07/27/2025 4:30 PM EDT Telemedicine [facility] OBGYN [address] [place] [address] Anu Ojeda NP Menorrhagia with regular cycle (Primary Dx); Dysmenorrhea 07/27/2025 Telephone [facility] OBGYN [address] [place] [address] Kristin Mackey RN 07/27/2025 Travel 07/19/2025 Telephone [facility] OBGYN [address] [place] [address] Joaquin Fitzgerald med f/up 07/16/2025 Refill [facility] INTERNAL MED [address] [place] [address] Kyrie Messina PA 07/12/2025 Results Follow-Up [facility] OBGYN [address] [place] [address] Anu Ojeda NP BI Mammogram Screening Bilateral 07/08/2025 Results Follow-Up [facility] [address] [place] [address] Anu Ojeda NP POCT Urinalysis dipstick, Urine culture (clean catch) 07/04/2025 3:00 PM EDT Office Visit [facility] [address] [place] [address] Anu Ojeda NP Pelvic pain (Primary Dx); Menorrhagia with regular cycle; Dysuria 07/03/2025 Travel 06/23/2025 11:30 AM EDT Office Visit [facility] [address] [place] [address] Anu Ojeda NP Dysmenorrhea (Primary Dx); Screening mammogram for breast [...] Vaccines (1 of 2) 12/24/2023 COVID-19 Vaccine ( - season) 2025 10/27/2022, 02/27/2021, 01/30/2021 Influenza [...] complication, without long-term current use of insulin ([facility]/HCC) LIPID PANEL, STANDARD Routine 09/22/2024 11:40 AM [...] of malignancy. BI-RADS 1 - NEGATIVE. POI: [place] [address] . Procedure Note Donotuseinterpreter, Image - 07/12/2025 [...] of malignancy. BI-RADS 1 - NEGATIVE. POI: [place] [address] . Anu Ojeda NP IM BI PROCEDURES Final Resu lt * (ABNORMAL) Urine culture (clean catch) (07/05/2025 3:41 PM EDT) Culture, Urine, Routine SEE NOTE(A) [employer] [facility] Comment: CULTURE, URINE, ROUTINE Micro Number: [id number] Test Status: Final Specimen Source: Urine Specimen [...] MICROBIOLOGY - GENERAL O RDERABLES Final Result [facility] [address], [place] [address] [employer] [facility] [address] [place] [address] * (ABNORMAL) POCT Urinalysis dipstick (07/04/2025 2:46 [...] AM EDT) Hemoglobin A1c 6.4(H) <5.7 % [employer] [facility] Comment: For someone without known diabetes, a [...] children. Mean Plasma Glucose 151 mg/dL (calc) [employer] [facility] 06/07/2025 11:0 0 AM EDT 06/07/2025 11:00 AM EDT Narrative [facility] - 06/08/2025 5:31 AM EDT FASTING:YES FASTING: YES Cierra Lindsey NP LAB BLOOD ORDERABLES Final Result [facility] [address], [place] [address] [employer] [facility] [address] [place] [address] * (ABNORMAL) Lipid Panel, Standard (09/22/2024 11:40 AM EST) Cholesterol, Total 157 <200 mg/dL [employer] [facility] HDL Cholesterol 46(L) > OR = 50 mg/dL [employer] [facility] Triglycerides 160(H) <150 mg/dL [employer] [facility] LDL Cholesterol 85 mg/dL [facility] [employer] [place] [facility] Comment: Reference range: <100 Desirable range <100 mg/dL for primary prevention; <70 mg/dL for patients with CHD or diabetic patients with > or = 2 CHD risk factors. LDL-C is now calculated using the Cass calculation, which is a validated novel method providing better accuracy than the Friedewald equation in the estimation of LDL-C. Morales MARSHALL et al. FATOUMATA. 2013;310(19): 0996-7347 (http://education.LinguaLeo/faq/VAC218) Chol/HDLC Ratio 3.4 <5.0 (calc) [employer] [facility] Non-HDL Cholesterol 111 <130 mg/dL [employer] [facility] Comment: For patients with diabetes plus 1 major ASCVD risk factor, treating to a non-HDL-C goal of <100 mg/dL (LDL-C of <70 mg/dL) is considered a therapeutic option. Blood Venous blood specimen / Unknown 09/22/2024 11:40 AM EST 09/22/2024 11:41 AM EST Narrative [facility] - 09/23/2024 12:34 AM EST FASTING:YES FASTING: YES us Alyssa Ellsworth MD LAB BLOOD ORDERABLES Final Resul t [facility] [address], [place] [address] [employer] [facility] [address] [place] [address] * Albumin, Random Urine W/Creatinine (07/05/2024 12:51 PM EDT) Creatinine, Random Urine 67 20 - 275 mg/dL [employer] [facility] Albumin, Urine 1.7 See Note: mg/dL [email or web address] Comment: Reference Range: Reference Range Not established Albumin/Creatinin e Ratio, Random Urine 25 <30 mg/g creat [employer] [facility] Comment: The ADA defines abnormalities in albumin [...] [facility] LAB URINE ORDERABLES Fi nal Result [address], [place] [address] [employer] [facility] [address] [place] [address] * ThinPrep Imaging Pap and HPV mRNA E6/E7 with Reflex to HPV 16,18/45 (07/05/2024 12:00 AM EDT) Clinical Information: [email or web address] Comment:ABNORMAL IN HER 20S LMP: [employer] [facility] Comment:NONE GIVEN Prev. PAP: [employer] [facility] Comment:NONE GIVEN Prev. BX: [email or web address] Comment:NO SOURCE: [email or web address] Comment:None given Statement Of Adequacy: [email or web address] Comment: Satisfactory for evaluation. Endocervical/transformation zone component present. Interpretation/Res ult: [email or web address] Comment: Cytology Results: Negative for intraepithelial lesion or malignancy. COMMENT: [email or web address] Comment: This Pap test has been evaluated with computer assisted technology. Willow Machine Tender: Instant Information Comment: RXB, CT(ASCP) CT screening location: [address] [address] (Always Message) [facility] [employer] Comment: EXPLANATORY NOTE: The Pap is a [...] HPV nRNA E6/E7 Not Detected Not Detected [email or web address] Comment: Methodology: Waste Picker-Mediated Amplification This assay detects E6/E7 viral messenger RNA (mRNA) from 14 high-risk HPV types (16,18,31,33,35,39,45,51,52,56,58,59,66,68). Cervical sources are required for HPV testing. If a vaginal source from a patient who has had a total hysterectomy with removal of cervix was submitted, please contact the testing laboratory for alternative testing options. For additional information, please refer to http://education.RAD Technologies/faq/KQB962t9 (This link if provided for information/ educational purposes only.) 07/05/2024 07/06/2024 1:5 0 AM EDT Anu Ojeda NP LAB PATHOLOGY ORDERABLES Fin al Result [facility] [address], [place] [address] [employer] [facility] [address] [place] [address] * COLONOSCOPY (07/18/2021 9:00 AM EDT) Anatomical Region Laterality Modality Endoscopy 07/18/2021 9:00 AM EDT Narrative 07/18/2021 9:00 AM EDT Interpretation Comment: abnormal-adenomatous and hyperplastic polyps Refer to the Notes tab for result details Procedure Note Florencia Tomlinson MD - 07/25/2023 Interpretation Comment: abnormal-adenomatous and hyperplastic polyps Refer to the Notes tab for result details Cory Angeles MD ENDOSCOPY PROCEDURE ORDERABLES Final Result from Last 3 Months or Most Recently Relevant to Health Maintenance Insurance [place] [id number] [place] [address] HMO * Guarantor: Merissa [place] Account Type Relation to Patient Date of Phone Billing Address Personal/Family Self [place], [place] * Guarantor: Merissa Montana Account Type Relation to Patient Date of Phone Billing Address Personal/Family Self [place], [place] * Guarantor: Merissa Montana Account Type Relation to Patient Date of Phone Billing Address Personal/Family Self [place], [place] Care Teams Environmental Monitoring Specialist Relationship Specialty Start Date End Date Cierra Lindsey NP [address] [place] [address] PCP - General Family Medicine 12/22/24
--- OUTSIDE RECORDS SUMMARY | 2025-08-24 18:11 | XMS_ITS | Encounter Summary ---
Author Organization [employer] Address [address] [facility] 7t [place] [address] Care Team Providers Care Video Games Mechanic Name Role Phone Cierra Lindsey NP Primary Care Provider [phone] Encounter Details Date Type Department Care Team (Late st Contact Info) Description 07/12/2025 Results Follow-Up [facility] [address] [place] [address] Anu Ojeda NP [address] [place] [address] BI Mammogram Screening Bilateral Social History Tobacco [...] documented as of this encounter Care Teams Video Games Mechanic Relationship Specialty Start Date End Date Cierra Lindsey NP [facility] [place] [address] PCP - General Family Medicine 12/22/24 documented as of this encounter
--- OUTSIDE RECORDS SUMMARY | 2025-08-24 18:11 | XMS_ITS | Encounter Summary ---
Author Organization [employer] Address 75 [facility] 7 [place] [address] Care Team Providers Care Broadcast Operations Director Name Role Phone Alyssa Ellsworth MD Primary Care Provider Cierra Casey NP Primary Care Provider [phone] Reason for Visit * Reason Onset Date Comments Med Refill 03/11/2024 Encounter Details Date Type Department Care Team (Late st Contact Info) Description 03/11/2024 Refill [facility] [address] [place] [address] Jaspal Root MD [address] [place] [address] Type 2 diabetes mellitus without complication, without long-term current use of insulin ([facility]) Social History Tobacco Use Types Packs/Day Years Used Date Smoking Tobacco: Never Smokeless Tobacco: Never Alcohol Use Standard Drinks/Week Comments Not Currently 0 (1 standard drink = 0.6 oz pur e alcohol) Housing Stability Answer Date Recorded What is your housing situation today? I have hcarlotte madrigal 08/10/[address] you [...] (HCC) documented in this encounter Care Teams Broadcast Operations Director Relationship Specialty Start Date End Date Alyssa Ellsworth MD PCP - General Family Medicine 08/19/23 12/21/24 Cierra Lindsey NP [facility] [place] [address] PCP - General Family Medicine 12/22/24 documented as of this encounter
--- OUTSIDE RECORDS SUMMARY | 2025-08-24 18:11 | XMS_ITS | Encounter Summary ---
Author Organization [employer] Address [address] [place] [address] 7 [place] [address] Care Team Providers Care Student Recruiter Name Role Phone Alyssa Ellsworth MD Primary Care Provider Cierra Casey NP Primary Care Provider [phone] Reason for Visit * Reason Comments Med Change Request Encounter Details Date Type Department Care Team (Late st Contact Info) Description 04/08/2024 Refill [facility] [address] [place] [address] Lucien Cardenas MD [address] [place] [address] Type 2 diabetes mellitus without complication, without long-term current use of insulin ([facility]) Social History Tobacco Use Types Packs/Day Years [...] (HCC) documented in this encounter Care Teams Student Recruiter Relationship Specialty Start Date End Date Alyssa Ellsworth MD PCP - General Family Medicine 08/19/23 12/21/24 Cierra Lindsey NP [address] [place] [address] PCP - General Family Medicine 12/22/24 documented as of this encounter
--- OUTSIDE RECORDS SUMMARY | 2025-08-24 18:11 | XMS_ITS | Encounter Summary ---
Author Organization [employer] Address 75 [facility] 7t [place] [address] Care Team Providers Care Occ Therapy Asst Name Role Phone Alyssa Ellsworth MD Primary Care Provider Unavailab Cierra Davis NP Primary Care Provider [phone] Encounter Details Date Type Department Care Team (Late st Contact Info) Description 12/09/2024 Orders Only [facility] [address] [place] [address] Alyssa Ellsworth MD Iron deficiency (Primary Dx) [...] metabolism documented in this encounter Care Teams Occ Therapy Asst Relationship Specialty Start Date End Date Alyssa Ellsworth MD PCP - General Family Medicine 08/19/23 12/21/24 Cierra Lindsey NP [address] [place] [address] PCP - General Family Medicine 12/22/24 documented as of this encounter
== END 2025-08-24 15:50 | disposition home or self-care (01) ==
LOC: HO.HWS 14:43
PROVIDERS: PCP Internal Medicine; Visit Provider Advanced Practice Midwife
DX: Z01.419 Encounter for gynecological examination (general) (routine) without abnormal findings (principal); N93.9 Abnormal uterine and vaginal bleeding, unspecified; N83.201 Unspecified ovarian cyst, right side
CPT/HCPCS: 99386; 99459

== ENCOUNTER 2025-08-24 14:42 | Outpatient (REF) | payer OTHER, SELFPAY ==
[2025-08-24 17:17] LABS: Hematocrit 40.0 % (37.0-47.0); Hemoglobin 12.9 g/dl (12.0-16.0); Mean Corpuscular HGB Conc 32.3 g/dl (31.0-35.0); Mean Corpuscular Hemoglobin 28.8 pg (27.0-33.0); Mean Corpuscular Volume 89.3 fL (80.0-98.0); NRBC Abs Auto 0.000 X10*3/uL (0.0-0.012); NRBC Pct Auto 0.0 /100WBC (0.0-0.2); Platelet Count 328 X10*3/uL (160-400); Red Blood Count 4.48 X10*6/uL (4.20-5.50); White Blood Count 6.7 X10*3/uL (4.8-10.8)
== END 2025-08-24 14:43 | disposition home or self-care (01) ==
LOC: HO.LAB 14:42
PROVIDERS: PCP Internal Medicine; Visit Provider Advanced Practice Midwife
DX: N93.9 Abnormal uterine and vaginal bleeding, unspecified (principal); N83.201 Unspecified ovarian cyst, right side; R10.20 Pelvic and perineal pain unspecified side; Z13.29 Encounter for screening for other suspected endocrine disorder; Z11.51 Encounter for screening for human papillomavirus (HPV); Z11.3 Encounter for screening for infections with a predominantly sexual mode of transmission
CPT/HCPCS: 36415; 84443; 85027; 87626; 88175

== ENCOUNTER 2025-08-25 13:40 | Outpatient (REF) | payer OTHER, SELFPAY ==
[2025-08-25 16:21] LABS: Bacterial Vaginosis PCR POSITIVE (Negative); Candida Group PCR NOT DETECTED (Not Detect); Candida glab krusei PCR NOT DETECTED (Not Detect); Trichomonas vaginalis PCR NOT DETECTED (Not Detect)
[2025-08-25 16:50] LABS: CT PCR NOT DETECTED (Not Detect.); NG PCR NOT DETECTED (Not Detect.)
--- OUTSIDE RECORDS SUMMARY | 2025-08-25 17:02 | XMS_ITS | Encounter Summary ---
Author Organization [employer] Address 75 [facility] 7t [place] [address] Care Team Providers Care Cupola Man Name Role Phone Alyssa Ellsworth MD Primary Care Provider Unavailab Cierra Davis NP Primary Care Provider [phone] Encounter Details Date Type Department Care Team (Late st Contact Info) Description 12/09/2024 Orders Only [facility] [address] [place] [address] Alyssa Ellsworth MD Iron deficiency (Primary Dx) [...] metabolism documented in this encounter Care Teams Cupola Man Relationship Specialty Start Date End Date Alyssa Ellsworth MD PCP - General Family Medicine 08/19/23 12/21/24 Cierra Lindsey NP [address] [place] [address] PCP - General Family Medicine 12/22/24 documented as of this encounter
--- OUTSIDE RECORDS SUMMARY | 2025-08-25 17:02 | XMS_ITS | Encounter Summary ---
Author Organization [employer] [facility] Address [address] [place] [address] 7 [place] [address] Care Team Providers Care Funeral Limousine Driver Name Role Phone Cory Angeles MD Primary Care Provider [phone] Alyssa Ellsworth MD Primary Care Provider Unavail Cierra Davis NP Primary Care Provider Reason for Visit * Reason Comments Med Change Request Encounter Details Date Type Department Care Team (Late st Contact Info) Description 10/18/2022 Refill [facility] [address] [place] [address] Cory Angeles MD [address] [place] [id number] Type 2 diabetes mellitus without complication, without long-term current use of insulin ([facility]/HCC) Social History Tobacco Use Types Packs/Day [...] (HCC) documented in this encounter Care Teams Funeral Limousine Driver Relationship Specialty Start Date End Date Cory Angeles MD PCP - General Internal Medicine 11/14/21 08/18/23 Alyssa Ellsworth MD PCP - General Family Medicine 08/19/23 12/21/24 Cierra Lindsey NP [address] [place] [address] PCP - General Family Medicine 12/22/24 documented as of this encounter
--- OUTSIDE RECORDS SUMMARY | 2025-08-25 17:02 | XMS_ITS | Encounter Summary ---
Author Organization [employer] Address 75 [facility] 7t [place] [address] Care Team Providers Care Loom Changeover Operator Name Role Phone Cierra Lindsey NP Primary Care Provider [phone] Encounter Details Date Type Department Care Team (Late st Contact Info) Description 07/12/2025 Results Follow-Up [facility] [address] [place] [address] Anu Ojeda NP [address] [place] [address] BI Mammogram Screening Bilateral Social History Tobacco [...] documented as of this encounter Care Teams Loom Changeover Operator Relationship Specialty Start Date End Date Cierra Lindsey NP [facility]0 [place] [address] PCP - General Family Medicine 12/22/24 documented as of this encounter
--- OUTSIDE RECORDS SUMMARY | 2025-08-25 17:02 | XMS_ITS | Encounter Summary ---
Author Organization [employer] Address 75 [facility] 7 [place] [address] Care Team Providers Care Optical Glass Sawyer Name Role Phone Alyssa Ellsworth MD Primary Care Provider Cierra Casey NP Primary Care Provider [phone] Reason for Visit * Reason Onset Date Comments Med Refill 03/11/2024 Encounter Details Date Type Department Care Team (Late st Contact Info) Description 03/11/2024 Refill [facility] [address] [place] [address] Jaspal Root MD [address] [place] [address] Type 2 diabetes mellitus without complication, without long-term current use of insulin ([facility]) Social History Tobacco Use Types [...] (HCC) documented in this encounter Care Teams Optical Glass Sawyer Relationship Specialty Start Date End Date Alyssa Ellsworth MD PCP - General Family Medicine 08/19/23 12/21/24 Cierra Lindsey NP [facility] [place] [address] PCP - General Family Medicine 12/22/24 documented as of this encounter
--- OUTSIDE RECORDS SUMMARY | 2025-08-25 17:02 | XMS_ITS | Clinical Summary ---
Author Organization [employer] Address [address] [facility] [address] [place] [address] Care Team Providers Care Spud Driller Name Role Phone Cierra Lindsey NP Primary Care Provider [phone] Allergies No known active allergies Medications Drospirenone [...] & Plan (2024 4:24 PM EDT): Advised [place] that this is very difficult to work [...] clinic vs ER visit vs call to fire extinguisher inspector. Questions answered. Patient understands and agrees with [...] Type Department Care Team Description 08/11/2025 Refill [facility] [address] [place] [id number] Kyrie Messina PA Well-controlled hypertension 07/27/2025 4:30 PM EDT Telemedicine [facility] [address] [place] [phone] Anu Ojeda NP Menorrhagia with regular cycle (Primary Dx); Dysmenorrhea 07/27/2025 Telephone [facility] [address] [place] [address] Kristin Mackey RN 07/27/2025 Travel 07/19/2025 Telephone [facility] [address] [place] [address] Joaquin Fitzgerald med f/up 07/16/2025 Refill [facility] [address] [place] [phone] Kyrie Messina PA 07/12/2025 Results Follow-Up [facility] [address] [place] [phone] Anu Ojeda NP BI Mammogram Screening Bilateral 07/08/2025 Results Follow-Up [facility] [address] [place] [address] Anu Ojeda NP POCT Urinalysis dipstick, Urine culture (clean catch) 07/04/2025 3:00 PM EDT Office Visit [facility] [address] [place] [address] Anu Ojeda NP Pelvic pain (Primary Dx); Menorrhagia with regular cycle; Dysuria 07/03/2025 Travel 06/23/2025 11:30 AM EDT Office Visit [facility] [address] [place] [address] Anu Ojeda NP Dysmenorrhea (Primary Dx); Screening [...] complication, without long-term current use of insulin ([facility]/HCC) LIPID PANEL, STANDARD Routine 09/22/2024 11:40 AM [...] of malignancy. BI-RADS 1 - NEGATIVE. POI: [place] [address] . Procedure Note Donotuseinterpreter, Image - 07/12/2025 [...] of malignancy. BI-RADS 1 - NEGATIVE. POI: [place] [address] . Anu Ojeda NP IM BI PROCEDURES Final Resu lt * (ABNORMAL) Urine culture (clean catch) (07/05/2025 3:41 PM EDT) Culture, Urine, Routine SEE NOTE(A) [facility] Comment: CULTURE, URINE, ROUTINE Micro Number: [id number] Test Status: Final Specimen Source: Urine Specimen [...] GENERAL O RDERABLES Final Result [facility] [address], [place] [address] [facility] [address] [place] [address] * (ABNORMAL) POCT Urinalysis dipstick (07/04/2025 2:46 [...] AM EDT) Hemoglobin A1c 6.4(H) <5.7 % [facility] Comment: For someone without known diabetes, a [...] children. Mean Plasma Glucose 151 mg/dL (calc) [facility] 06/07/2025 11:0 0 AM EDT 06/07/2025 11:00 AM EDT Narrative [facility] - 06/08/2025 5:31 AM EDT FASTING:YES FASTING: YES Cierra Lindsey NP LAB BLOOD ORDERABLES Final Result [facility] [address], [place] [address] [facility] [address] [place] [address] * (ABNORMAL) Lipid Panel, Standard (09/22/2024 11:40 AM EST) Cholesterol, Total 157 <200 mg/dL [facility] HDL Cholesterol 46(L) > OR = 50 mg/dL [facility] Triglycerides 160(H) <150 mg/dL [facility] LDL Cholesterol 85 mg/dL [facility] Comment: Reference range: <100 Desirable range <100 mg/dL for primary prevention; <70 mg/dL for patients with CHD or diabetic patients with > or = 2 CHD risk factors. LDL-C is now calculated using the Cass calculation, which is a validated novel method providing better accuracy than the Friedewald equation in the estimation of LDL-C. Morales MARSHALL et al. FATOUMATA. 2013;310(19): 1503-5411 (http://education.[employer]/faq/NOA935) Chol/HDLC Ratio 3.4 <5.0 (calc) [facility] Non-HDL Cholesterol 111 <130 mg/dL [facility] Comment: For patients with diabetes plus 1 [...] BLOOD ORDERABLES Final Resul t [facility] [address], [place] [address] [facility] [address] [place] [address] * Albumin, Random Urine W/Creatinine (07/05/2024 12:51 PM EDT) Creatinine, Random Urine 67 20 - 275 mg/dL [facility] Albumin, Urine 1.7 See Note: mg/dL [facility] Comment: Reference Range: Reference Range Not established Albumin/Creatinin e Ratio, Random Urine 25 <30 mg/g creat [facility] Comment: The ADA defines abnormalities in albumin [...] [facility] LAB URINE ORDERABLES Fi nal Result [address], [place] [address] [facility] [address] [place] [address] * [facility]inPrep Imaging Pap and HPV mRNA E6/E7 with Reflex to HPV 16,18/45 (07/05/2024 12:00 AM EDT) Clinical Information: [facility] Comment:ABNORMAL IN HER 20S LMP: [facility] Comment:NONE GIVEN Prev. PAP: [facility] Comment:NONE GIVEN Prev. BX: [facility] Comment:NO SOURCE: [facility] Comment:None given Statement Of Adequacy: [facility] Comment: Satisfactory for evaluation. Endocervical/transformation zone component present. Interpretation/Res ult: [facility] Comment: Cytology Results: Negative for intraepithelial lesion or malignancy. COMMENT: [facility] Comment: This Pap test has been evaluated with computer assisted technology. In Home Aide: [employer] Comment: RXB, CT(ASCP) CT screening location: [address] [address] (Always Message) [facility] Comment: EXPLANATORY NOTE: The Pap is a [...] HPV nRNA E6/E7 Not Detected Not Detected [facility] Comment: Methodology: Technical Maintenance Technician-Mediated Amplification This assay detects E6/E7 viral messenger RNA (mRNA) from 14 high-risk HPV types (16,18,31,33,35,39,45,51,52,56,58,59,66,68). Cervical sources are required for HPV testing. If a vaginal source from a patient who has had a total hysterectomy with removal of cervix was submitted, please contact the testing laboratory for alternative testing options. For additional information, please refer to http://education.[employer]/faq/ZLC433d2 (This link if provided for information/ educational purposes only.) 07/05/2024 07/06/2024 1:5 0 AM EDT Anu Ojeda NP LAB PATHOLOGY ORDERABLES Fin al Result [facility] [address], [place] [address] [facility] [address] [place] [address] * COLONOSCOPY (07/18/2021 9:00 AM EDT) Anatomical Region Laterality Modality Endoscopy 07/18/2021 9:00 AM EDT Narrative 07/18/2021 9:00 AM EDT Interpretation Comment: abnormal-adenomatous and hyperplastic polyps Refer to the Notes tab for result details Procedure Note Florencia Tomlinson MD - 07/25/2023 Interpretation Comment: abnormal-adenomatous and hyperplastic polyps Refer to the Notes tab for result details oCry Angeles MD ENDOSCOPY PROCEDURE ORDERABLES Final Result from Last 3 Months or Most Recently Relevant to Health Maintenance Insurance [place] [employer] [employer] [id number] [place] [address] HMO * Guarantor: Merissa [place] Account Type Relation to Patient Date of Phone Billing Address Personal/Family Self [place], [place] * Guarantor: Merissa Montana Account Type Relation to Patient Date of Phone Billing Address Personal/Family Self [place], [place] * Guarantor: Merissa [place] Account Type Relation to Patient Date of Phone Billing Address Personal/Family Self [place] Care Teams Spud Driller Relationship Specialty Start Date End Date Cierra Lindsey NP [address] [place] [address] PCP - General Family Medicine 12/22/24
--- OUTSIDE RECORDS SUMMARY | 2025-08-25 17:02 | XMS_ITS | Encounter Summary ---
Author Organization [employer] Address [address] [place] [address] [address] [place] [address] Care Team Providers Care Stage Electrician Helper Name Role Phone Alyssa Ellsworth MD Primary Care Provider Cierra Casey NP Primary Care Provider [phone] Reason for Visit * Reason Comments Med Change Request Encounter Details Date Type Department Care Team (Late st Contact Info) Description 04/08/2024 Refill [facility] [address] [place] [address] Lucien Cardenas MD [address] [place] [address] Type 2 diabetes mellitus without complication, without long-term current use of insulin ([facility]) Social History Tobacco Use Types Packs/Day Years [...] (HCC) documented in this encounter Care Teams Stage Electrician Helper Relationship Specialty Start Date End Date Alyssa Ellsworth MD PCP - General Family Medicine 08/19/23 12/21/24 Cierra Lindsey NP [address] [place] [address] PCP - General Family Medicine 12/22/24 documented as of this encounter
== END 2025-08-25 13:41 | disposition home or self-care (01) ==
LOC: HO.LNP 13:40
PROVIDERS: Visit Provider Advanced Practice Midwife
DX: Z11.51 Encounter for screening for human papillomavirus (HPV) (principal); R10.20 Pelvic and perineal pain unspecified side; Z20.2 Contact with and (suspected) exposure to infections with a predominantly sexual mode of transmission
CPT/HCPCS: 81515; 87491; 87591

== ENCOUNTER 2025-08-29 09:50 | Outpatient (REF) | payer OTHER, SELFPAY ==
[2025-08-29 11:21] LABS: MANUAL DIFF FLAG NO
[2025-08-29 11:43] LABS: Appearance Urine Cloudy; Glucose Urine UA Negative (Negative); PH 5.0 (5.0-9.0); Specific Gravity - Urine 1.025 (1.005-1.025); UMIC TRIGGER UA YES
[2025-08-29 12:08] LABS: Hematocrit 37.0 % (37.0-47.0); Hemoglobin 12.0 g/dl (12.0-16.0); Imm Gran Abs Auto 0.01 X10*3/uL (0.00-0.03); Imm Gran Pct Auto 0.2 % (0.0-0.4); Lymphocytes Absolute Auto 1.7 X10*3/uL (1.2-4.9); Mean Corpuscular HGB Conc 32.4 g/dl (31.0-35.0); Mean Corpuscular Hemoglobin 28.7 pg (27.0-33.0); Mean Corpuscular Volume 88.5 fL (80.0-98.0); NRBC Abs Auto 0.000 X10*3/uL (0.0-0.012); NRBC Pct Auto 0.0 /100WBC (0.0-0.2); Platelet Count 314 X10*3/uL (160-400); Red Blood Count 4.18 X10*6/uL (4.20-5.50); White Blood Count 4.0 X10*3/uL (4.8-10.8)
[2025-08-29 12:45] LABS: Albumin Level 4.4 g/dL (3.5-5.0); Alkaline Phosphatase 66 U/L (39-117); Anion Gap 12 (12-20); Aspartate Amino Transferase 29 U/L (5-31); Blood Urea Nitrogen 11 mg/dL (9-16); Calcium 9.5 mg/dL (8.4-10.2); Carbon Dioxide 25 mmol/L (22-29); Chloride 107 mmol/L (96-108); Cholesterol 147 mg/dL (<200); Estimated Glomerular Filt Rate > 60; HDL Cholesterol 50 mg/dL (>40); Potassium 4.1 mmol/L (3.3-5.1); Sodium 140 mmol/L (135-145); Total Protein 7.2 g/dL (6.5-8.0); Triglycerides 145 mg/dL (<150)
[2025-08-29 12:48] LABS: Alanine Aminotransferase 41 U/L (0-31)
== END 2025-08-29 09:51 | disposition home or self-care (01) ==
LOC: HO.WFDLDS 09:50
PROVIDERS: Visit Provider Internal Medicine
DX: E11.9 Type 2 diabetes mellitus without complications (principal); D64.9 Anemia, unspecified; E78.5 Hyperlipidemia, unspecified
CPT/HCPCS: 36415; 80053; 80061; 81001; 83036; 84443; 85025